=== PATIENT | female | born 1960 | race African-American/Black ===

== ENCOUNTER 2021-06-16 10:43 | Inpatient (IN) | payer SELFPAY ==
[2021-06-16 11:28] LABS: Hemoglobin 15.7 g/dL (12.0-16.0); Mean Corpuscular HGB CONC 32.7 g/dL (32.0-36.0); Mean Corpuscular Hemoglobin 29.7 pg (27.0-31.0); Platelet Count 137 thou/uL (130-400); RBC Distribution Width 11.6 % (11.5-14.5); Red Blood Cell (RBC) Count 5.27 mill/uL (4.20-5.40); White Blood Cell (WBC) Count 3.7 thou/uL (4.8-10.8)
[2021-06-16 12:00] LABS: Band 12 % (5-11); Lymphocytes 27 % (21-51); MDiff Complete? YES; Monocytes 3 % (0-10); Neutrophil 43 % (42-75); Platelet Morphology Comment Appears Adequate; RBC Morphology Normal; Reactive Lymphocytes 15 % (0-10)
[2021-06-16 12:12] LABS: ALT (SGPT) 78 U/L (8-55); AST (SGOT) 112 U/L (5-34); Alkaline Phosphatase 81 U/L (40-110); Anion Gap 12 mmol/L (10-20); BUN (Urea Nitrogen) 15 mg/dL (9.8-20.1); Bilirubin, Total 0.6 mg/dL (0.2-1.2); Calc. Creatinine Clearance 0 mL/min (70-130); Calcium 8.1 mg/dL (7.8-10.44); Carbon Dioxide 27 mmol/L (22-29); Chloride 97 mmol/L (98-107); Glucose 239 mg/dL (70-105); Potassium 4.6 mmol/L (3.5-5.1); Sodium 131 mmol/L (136-145)
[2021-06-16] MEDS ORDERED: Dexamethasone 4 mg/ml Vial ONE (12:32)
[2021-06-16] MEDS ORDERED: hydrALAZINE 25 MG TAB ONE (12:33)
[2021-06-16 12:54] LABS: SARS-CoV-2 NAA Rapid Test DETECTED (NotDetected)
[2021-06-16] MEDS ORDERED: Ondansetron ODT 4 MG TAB PO PRN (14:35)
[2021-06-16] MEDS ORDERED: Guaifenesin DM 100-10/5 ML UDCUP PO PRN (14:35)
[2021-06-16] MEDS ORDERED: Acetaminophen 325 MG TAB PO PRN (14:35)
[2021-06-16] MEDS ORDERED: Acetaminophen 650 MG Suppository PR PRN (14:35)
[2021-06-16] MEDS ORDERED: Enoxaparin Sodium 40 MG/0.4 ML SYRINGE SC SCH (14:45)
[2021-06-16] MEDS ORDERED: Sodium Chloride 0.9% 1,000 ML IV SCH (15:00)
[2021-06-16 15:18] LABS: Hemoglobin A1c 8.6 % (4.0-6.0)
[2021-06-16] MEDS ORDERED: REMDESIVIR 200 MG in Sodium Chloride 0.9% 250 ML 210 ML IV SCH (17:00)
[2021-06-16 19:46] VITALS: BMI 43.4
[2021-06-16] MEDS: Heparin 5,000 UNITS/ML VIAL SC SCH (20:03)
[2021-06-16] MEDS ORDERED: hydrALAZINE 20 MG/ML VIAL SLOW IVP PRN (21:29)
[2021-06-16] MEDS: Ondansetron PF 4 MG/2 ML Vial IVP PRN (22:06)
[2021-06-17] MEDS: cloNIDine 0.1 MG TAB PO PRN ×2 (01:14→21:25)
[2021-06-17] MEDS ORDERED: cloNIDine 0.1 MG TAB PO SCH (02:30)
[2021-06-17 06:12] LABS: Anion Gap 10 mmol/L (10-20); BUN (Urea Nitrogen) 20 mg/dL (9.8-20.1); Calc. Creatinine Clearance 77 mL/min (70-130); Carbon Dioxide 26 mmol/L (22-29); Cardiac Risk 3.1 (Less than 4.5); Chloride 99 mmol/L (98-107); Cholesterol 92 mg/dl (< 200 Desired); Glucose 279 mg/dL (70-105); HDL Cholesterol 30 mg/dL (>60 Neg Risk); LDL Cholesterol, Calculated 49 mg/dL; Potassium 4.5 mmol/L (3.5-5.1); Sodium 130 mmol/L (136-145); Triglycerides 64 mg/dL (Less than 150)
[2021-06-17 06:13] LABS: Band 3 % (5-11); Lymphocytes 15 % (21-51); MDiff Complete? YES; Mean Corpuscular HGB CONC 33.3 g/dL (32.0-36.0); Mean Corpuscular Hemoglobin 30.3 pg (27.0-31.0); Mean Corpuscular Volume 91.1 fL (78.0-98.0); Mean Platelet Volume 7.8 fL (7.4-10.4); Monocytes 16 % (0-10); Neutrophil 66 % (42-75); Platelet Count 148 thou/uL (130-400); Platelet Morphology Comment Appears Adequate; RBC Distribution Width 11.7 % (11.5-14.5); Red Blood Cell (RBC) Count 4.95 mill/uL (4.20-5.40); White Blood Cell (WBC) Count 3.4 thou/uL (4.8-10.8)
[2021-06-17] MEDS ORDERED: Amlodipine 5 MG TAB PO SCH ×2 (09:00→10:15)
[2021-06-17] MEDS ORDERED: Enoxaparin Sodium 40 MG/0.4 ML SYRINGE SC SCH (09:00)
[2021-06-17] MEDS: Ascorbic Acid 500 mg Chewable Tablet PO SCH (09:17)
[2021-06-17] MEDS: Zinc Sulfate 220 MG CAP PO SCH (09:17)
[2021-06-17] MEDS: Dexamethasone 4 MG TAB PO SCH (09:17)
[2021-06-17] MEDS: Heparin 5,000 UNITS/ML VIAL SC SCH ×2 (09:18→21:26)
[2021-06-17] MEDS ORDERED: Dextrose 50% Abboject 50 ML SYRINGE SLOW IVP PRN (10:53)
[2021-06-17] MEDS ORDERED: Insulin Regular 300 UNITS/3 ML VIAL SC PRN (10:53)
[2021-06-17] MEDS ORDERED: Dextrose 5% in Water 1,000 ML IV PRN (10:53)
[2021-06-17] MEDS: Insulin Regular 300 UNITS/3 ML VIAL SC PRN ×2 (12:23→17:28)
[2021-06-17] MEDS: Ondansetron PF 4 MG/2 ML Vial IVP PRN (12:33)
[2021-06-17] MEDS ORDERED: REMDESIVIR 100 MG in Sodium Chloride 0.9% 250 ML 230 ML IV SCH (17:00)
[2021-06-18] MEDS: cloNIDine 0.1 MG TAB PO PRN ×2 (00:45→05:56)
[2021-06-18] MEDS: Insulin Regular 300 UNITS/3 ML VIAL SC PRN ×3 (06:13→16:01)
[2021-06-18] MEDS: Dexamethasone 4 MG TAB PO SCH (08:07)
[2021-06-18] MEDS: Zinc Sulfate 220 MG CAP PO SCH (08:07)
[2021-06-18] MEDS: Ascorbic Acid 500 mg Chewable Tablet PO SCH (08:07)
[2021-06-18 08:58] LABS: ALT (SGPT) 44 U/L (8-55); AST (SGOT) 39 U/L (5-34); Albumin 2.7 g/dL (3.5-5.0); Alkaline Phosphatase 74 U/L (40-110); Anion Gap 10 mmol/L (10-20); BUN (Urea Nitrogen) 31 mg/dL (9.8-20.1); Bilirubin, Total 0.5 mg/dL (0.2-1.2); Calc. Creatinine Clearance 67 mL/min (70-130); Calcium 8.2 mg/dL (7.8-10.44); Carbon Dioxide 27 mmol/L (22-29); Chloride 100 mmol/L (98-107); Globulin 4.2 g/dL (2.4-3.5); Glucose 227 mg/dL (70-105); Potassium 4.7 mmol/L (3.5-5.1); Protein, Total 6.9 g/dL (6.0-8.3); Sodium 132 mmol/L (136-145)
[2021-06-18] MEDS ORDERED: Amlodipine 5 MG TAB PO SCH (09:00)
[2021-06-18] MEDS ORDERED: Enoxaparin Sodium 40 MG/0.4 ML SYRINGE SC SCH (09:00)
[2021-06-18 16:27] VITALS: BP 154/101; TEMP 98.6
[2021-06-18] MEDS ORDERED: Polyethylene Glycol 3350 17 GM Packet PO SCH (21:00)
[2021-06-18] MEDS ORDERED: Lantus 1000 UNITS/10 ML VIAL SC SCH (21:00)
== END 2021-06-18 16:59 | disposition home or self-care (01) | DRG 871 ==
LOC: ERS 10:43 → ERHOLD 12:57 → T4-A 20:27
PROVIDERS: ADMIT Internal Medicine; ATTEND Family Medicine
PROC: XW033E5 Introduction of Remdesivir Anti-infective into Peripheral Vein, Percutaneous Approach, New Technology Group 5 (ICD-10-PCS; principal; 2021-06-16)
PROC: 8E0ZXY6 Isolation (ICD-10-PCS; 2021-06-16)
DX: A41.89 Other specified sepsis (principal); U07.1 COVID-19; J12.82 Pneumonia due to coronavirus disease 2019; J96.01 Acute respiratory failure with hypoxia; Z68.41 Body mass index [BMI] 40.0-44.9, adult; N17.9 Acute kidney failure, unspecified; R65.20 Severe sepsis without septic shock; E66.9 Obesity, unspecified; E11.65 Type 2 diabetes mellitus with hyperglycemia; E88.81 Metabolic syndrome and other insulin resistance; I10 Essential (primary) hypertension
CPT/HCPCS: 0240U; 36415; 36416; 71045; 80048; 80053; 80061; 82728; 83036; 84484; 85025; 85379; 86140; 93005; 96374; J0360; J1100; J1644; J1650; J1815; J2405; J7050; J8540

== ENCOUNTER 2021-06-29 22:12 | Emergency (ER) | payer SELFPAY ==
[2021-06-29] MEDS ORDERED: Ondansetron PF 4 MG/2 ML Vial ONE (22:55)
[2021-06-29] MEDS ORDERED: Lidocaine 2% Viscous Solution 10 ML, Aluminum & Magnesium Hydroxide 30 ML SSW SCH (23:00)
[2021-06-29 23:47] LABS: ALT (SGPT) 45 U/L (8-55); AST (SGOT) 23 U/L (5-34); Albumin 3.4 g/dL (3.5-5.0); Alkaline Phosphatase 72 U/L (40-110); Anion Gap 12 mmol/L (10-20); BUN (Urea Nitrogen) 32 mg/dL (9.8-20.1); Bilirubin, Total 1.1 mg/dL (0.2-1.2); Calc. Creatinine Clearance 0 mL/min (70-130); Calcium 8.6 mg/dL (7.8-10.44); Carbon Dioxide 28 mmol/L (22-29); Chloride 92 mmol/L (98-107); Globulin 3.8 g/dL (2.4-3.5); Glucose 144 mg/dL (70-105); Lipase 146 U/L (8-78); Potassium 4.3 mmol/L (3.5-5.1); Protein, Total 7.2 g/dL (6.0-8.3); Sodium 128 mmol/L (136-145)
[2021-06-29 23:48] LABS: Hemoglobin 17.3 g/dL (12.0-16.0); Mean Corpuscular Hemoglobin 31.4 pg (27.0-31.0); Mean Corpuscular Volume 89.7 fL (78.0-98.0); Mean Platelet Volume 7.8 fL (7.4-10.4); Platelet Count 137 thou/uL (130-400); RBC Distribution Width 11.6 % (11.5-14.5); Red Blood Cell (RBC) Count 5.52 mill/uL (4.20-5.40); White Blood Cell (WBC) Count 5.2 thou/uL (4.8-10.8)
[2021-06-29 23:53] LABS: Lymphocytes 41 % (21-51); MDiff Complete? YES; Monocytes 9 % (0-10); Neutrophil 50 % (42-75); Platelet Morphology Comment Appears Adequate; RBC Morphology Normal
== END 2021-06-30 00:30 | disposition home or self-care (01) ==
LOC: ERS 22:12
DX: K29.70 Gastritis, unspecified, without bleeding (principal); T38.3X5A Adverse effect of insulin and oral hypoglycemic [antidiabetic] drugs, initial encounter; I12.9 Hypertensive chronic kidney disease with stage 1 through stage 4 chronic kidney disease, or unspecified chronic kidney disease; N18.9 Chronic kidney disease, unspecified; E11.22 Type 2 diabetes mellitus with diabetic chronic kidney disease; E66.9 Obesity, unspecified
CPT/HCPCS: 36415; 80053; 83690; 85025; 93005; 96374; J2405